=== PATIENT | male | born 1965 | race Caucasian/White ===

== ENCOUNTER 2018-11-15 06:59 | Day surgery (SDC) | payer BC ==
[2018-11-14 11:38] VITALS: BMI 29.6
[2018-11-15] MEDS ORDERED: ceFAZolin Sodium (SDC) 2 GM/100 ML BAG ONE (07:50)
[2018-11-15 07:58] LABS: #Basophils 0.1 thou/uL (0.0-0.2); #Eosinphils 0.1 thou/uL (0.0-0.7); #Lymphocytes 2.4 thou/uL (1.20-3.40); #Monocytes 0.8 thou/uL (0.11-0.59); #Neutrophils 4.8 thou/uL (1.40-6.50); %Basophils 0.6 % (0.0-1.0); %Eosinophils 1.3 % (0.0-10.0); %Lymphocytes 28.9 % (21.0-51.0); %Monocytes 10.2 % (0.0-10.0); %Neutrophils 58.9 % (42.0-75.0); Hemoglobin 15.1 g/dL (14.0-18.0); Mean Corpuscular HGB CONC 33.7 g/dL (32.0-36.0); Mean Corpuscular Hemoglobin 30.9 pg (27.0-31.0); Mean Corpuscular Volume 91.7 fL (78.0-98.0); Mean Platelet Volume 7.4 fL (7.4-10.4); Platelet Count 233 thou/uL (130-400); RBC Distribution Width 12.1 % (11.5-14.5); Red Blood Cell (RBC) Count 4.89 mill/uL (4.70-6.10); White Blood Cell (WBC) Count 8.1 thou/uL (4.8-10.8)
[2018-11-15] MEDS ORDERED: Bupivacaine HCl 0.5%/Epinephrine 1:200,000/PF 30 ml Vial ONE (08:13)
[2018-11-15] MEDS ORDERED: Fentanyl 100 MCG/2 ML VIAL ONE (08:31)
[2018-11-15] MEDS ORDERED: Morphine 2 MG/ML SYRINGE ONE (10:26)
--- NOTE | 2018-11-15 15:16 | OP ---
DATE OF PROCEDURE: 11/15/2018 PREOPERATIVE DIAGNOSIS: Right tennis elbow. POSTOPERATIVE DIAGNOSIS: Right tennis elbow. PROCEDURE PERFORMED: Right tennis elbow lateral epicondylitis debridement. ANESTHESIOLOGIST: Isaiah Andrews MD ANESTHESIA: The patient received an LMA with 90 mL of Marcaine 0.5% with epinephrine. ESTIMATED BLOOD LOSS: Less than 10 mL. TOURNIQUET TIME: 21 minutes at 300 mmHg. ANTIBIOTICS: Ancef 2 g. COMPLICATIONS: None. HISTORY OF PRESENT ILLNESS: Jeanette is a 53-year-old male with history of previous tennis elbow injections, had failed conservative measures and was stretching over a year and a half of symptoms. He decided to have a release. I discussed the risks and benefits of pain, scar, bleeding, infection, damage to vital structures, decreased range of motion and strength, nonunion, fracture above or below, and need for further surgeries. The patient understands the risks and benefits and elected to proceed. DESCRIPTION OF PROCEDURE: Time-out was performed designating the patient's right upper extremity as the operative site based on site, consents, and marking. After time-out, the patient's right upper extremity was prepped and draped in sterile fashion. An incision was made over the lateral epicondyle down through skin. When dissecting, came down to lateral epicondyle, made incision with the fascia up to lateral epicondyle. I came down on the entire condyle and debrided down the capsule, staying away from the patient's lateral collateral ligament. I took a rongeur, rongeured off the epicondyle, I moved up towards the brachioradialis. I made sure I had released the patient's ECRB and a portion of this longus, I took a section of the tendon out, staying above the capsule. After placing my debridement, I washed, closed the fascial plane with 2-0, subcu with 2-0 and 3-0 nylon. I injected 4 mL of Marcaine in the subcu fascia for closing the fascia above the tendon and injected the remainder subcu for a total of 9. The patient's tourniquet let down after 21 minutes, and placed a soft tissue dressing. The patient will follow up with me in about 10 to 12 days for suture removal. Job ID: [id number]
== END 2018-11-15 11:26 | disposition home or self-care (01) ==
LOC: SDC 06:59
PROVIDERS: ATTEND Orthopaedic Surgery
PROC: 0PBF0ZZ Excision of Right Humeral Shaft, Open Approach (ICD-10-PCS; principal; 2018-11-15)
PROC: 0L830ZZ Division of Right Upper Arm Tendon, Open Approach (ICD-10-PCS; principal; 2018-11-15)
DX: M77.11 Lateral epicondylitis, right elbow (principal); E78.5 Hyperlipidemia, unspecified; M47.812 Spondylosis without myelopathy or radiculopathy, cervical region; Z79.899 Other long term (current) drug therapy
CPT/HCPCS: 85025; J0670; J0690; J2270; J3010

== ENCOUNTER 2019-11-28 07:53 | Outpatient (CLI) | payer BC ==
--- NOTE | 2019-11-28 09:21 | MRI ---
MRI OF THE PELVIS WITHOUT CONTRAST: INDICATION: 54-year-old male with changes of bilateral proximal lower extremity weakness that is symm etric, predominantly involving the thighs. Has not improved or changed over the last year. No known trauma or injury. Patient has no history of lumbar spinal surgery. TECHNIQUE: Multiplanar multisequence MR images were obtained of the pelvis as well as proximal aspect s of both thighs. No MR or CT comparisons are available. FINDINGS: The visualized lumbosacral neural foramina appear widely patent. Visualized aspects of the femoral ne rve and sciatic nerve appear within normal limits. There is a moderate amount of retained stool within the colon. No free fluid is evident. No intrapelvic mass is identified. Visualized bladder an d prostate appears within normal limits. No bone marrow signal abnormality is grossly evident. There is some mild edema involving the proximal adductor musculature, predominantly the adductor mini mus and adductor brian musculature proximally, as well as portions of the more proximal and medial quadratus femoris on the right. No muscle signal abnormality is seen on the left. Rectus femoris and hamstring origins appear within normal limits. Both abductor minimus and medius tendons insertions appear within normal limits. No trochanteric or iliopsoas bursitis is evident. No definite large para labral cyst is evident. No joint effusion is noted. IMPRESSION: Nonspecific mild edema involving the proximal right adductor minimus and adductor brian musculature as well as portions of the medial aspect of the right quadratus femoris musculature. Findings are most suspicious for mild muscular strain. No overt muscular atrophy is evident. No lumbosacral neural foraminal narrowing is grossly evident. No intrapelvic mass is identified. No intrapelvic lymphadenopathy is seen. Transcribed Date/Time: 11/28/2019 9:59 AM
--- NOTE | 2019-11-28 09:40 | RAD ---
RADIOGRAPH CERVICAL SPINE 5 VIEWS: DATE: 11/28/2019 HISTORY: 54-year-old male with cervicalgia TECHNIQUE: Lateral, bilateral oblique, AP, open-mouth views. FINDINGS: Vertebral body heights are maintained. ACDF plate and screws at at C5, C6, and C7. Metallic markers f or interbody cages at the C5-6 and C6-7 disc spaces. Normal alignment. Ossified posterior longitudinal ligament at C4, C5, C6. Uncinate process osteophytes encroach upon bilateral neural fora jenn at C6-7 and on the right at C5-6. Facet DJD bilaterally at several levels. No disc space narrowing superior to C5 level. No prevertebral soft tissue swelling.. IMPRESSION: 1) status post anterior cervical discectomy and fusion at C5-6-7. 2) bilateral neural foraminal stenosis at C6-7, and right neural foraminal stenosis at C5-6. 3) ossified posterior longitudinal ligament at mid levels.
== END 2019-11-28 07:54 | disposition home or self-care (01) ==
LOC: SCSMRI 07:53
PROVIDERS: ATTEND Psychiatry & Neurology Neurology
DX: M47.812 Spondylosis without myelopathy or radiculopathy, cervical region (principal); G72.9 Myopathy, unspecified; M48.02 Spinal stenosis, cervical region; Z98.1 Arthrodesis status; Z98.890 Other specified postprocedural states; R60.0 Localized edema
CPT/HCPCS: 72052; 72195

== ENCOUNTER 2020-02-11 19:00 | Outpatient (CLI) | payer BC | END 2020-02-11 19:01 | disposition home or self-care (01) | LOC: SLEEPLAB 19:00 | PROVIDERS: ATTEND Family Medicine | DX: G47.33 Obstructive sleep apnea (adult) (pediatric) (principal) | CPT/HCPCS: 95811 ==

== ENCOUNTER 2020-08-07 10:04 | Outpatient (CLI) | payer BC | END 2020-08-07 10:05 | disposition home or self-care (01) | LOC: SCSRAD 10:04 | PROVIDERS: ATTEND Internal Medicine Rheumatology | DX: M17.0 Bilateral primary osteoarthritis of knee (principal); M54.5 Low back pain; M47.816 Spondylosis without myelopathy or radiculopathy, lumbar region | CPT/HCPCS: 72100 ==

== ENCOUNTER 2021-04-12 08:02 | Outpatient (CLI) | payer BC | END 2021-04-12 08:03 | disposition home or self-care (01) | LOC: SCSMRI 08:02 → BICMRI 08:03 | PROVIDERS: ATTEND Anesthesiology Pain Medicine | DX: M54.12 Radiculopathy, cervical region (principal); M48.02 Spinal stenosis, cervical region; Z98.1 Arthrodesis status | CPT/HCPCS: 72141 ==

== ENCOUNTER 2021-09-22 07:55 | Outpatient (CLI) | payer BC | END 2021-09-22 07:56 | disposition home or self-care (01) | LOC: SCSRAD 07:55 | PROVIDERS: ATTEND Family Medicine | DX: M94.0 Chondrocostal junction syndrome [Tietze] (principal) ==

== ENCOUNTER 2022-07-05 07:38 | Outpatient (CLI) | payer BC | END 2022-07-05 07:39 | disposition home or self-care (01) | LOC: SCSMRI 07:38 | PROVIDERS: ATTEND Orthopaedic Surgery | DX: M24.812 Other specific joint derangements of left shoulder, not elsewhere classified (principal); S46.912A Strain of unspecified muscle, fascia and tendon at shoulder and upper arm level, left arm, initial encounter; S43.402A Unspecified sprain of left shoulder joint, initial encounter; S46.212A Strain of muscle, fascia and tendon of other parts of biceps, left arm, initial encounter ==

== ENCOUNTER 2022-08-01 07:56 | Outpatient (CLI) | payer BC ==
[2022-08-01 08:35] LABS: #Eosinphils 0.2 10x3/uL (0.0-0.5); #Monocytes 1.1 10x3/uL (0.0-1.1); #Neutrophils 4.5 10x3/uL (1.5-8.4); %Basophils 0.5 % (0.0-2.0); %Eosinophils 2.4 % (0.0-6.0); %Lymphocytes 29.6 % (18.0-47.0); %Monocytes 12.8 % (0.0-10.0); %Neutrophils 54.5 % (40.0-75.0); Hemoglobin 16.4 g/dL (13.5-17.5); Mean Corpuscular HGB CONC 32.9 g/dL (32.0-36.0); Mean Corpuscular Hemoglobin 30.5 pg (27.0-33.0); Mean Corpuscular Volume 92.8 fl (81.2-95.1); Mean Platelet Volume 9.7 fl (7.4-10.4); Platelet Count 258 10x3/uL (150-450); RBC Distribution Width 13.5 % (11.5-14.5); Red Blood Cell (RBC) Count 5.38 10x6/uL (4.32-5.72); White Blood Cell (WBC) Count 8.3 10x3/uL (3.5-10.5)
== END 2022-08-01 07:57 | disposition home or self-care (01) ==
LOC: LABBT 07:56
PROVIDERS: ATTEND Orthopaedic Surgery
DX: Z01.812 Encounter for preprocedural laboratory examination (principal); M75.122 Complete rotator cuff tear or rupture of left shoulder, not specified as traumatic; S46.212A Strain of muscle, fascia and tendon of other parts of biceps, left arm, initial encounter
CPT/HCPCS: 85025

== ENCOUNTER 2022-08-04 05:49 | Day surgery (SDC) | payer BC ==
[2022-08-01 08:23] VITALS: BMI 30.5
[2022-08-04] MEDS ORDERED: Ondansetron PF 4 MG/2 ML Vial ONE (06:19)
[2022-08-04] MEDS ORDERED: Lidocaine 1% PF 5 ML VIAL ONE (06:19)
[2022-08-04] MEDS ORDERED: Midazolam HCl 2 mg/2 ml Vial ONE (06:19)
[2022-08-04] MEDS ORDERED: NEOSTIGMINE 3 MG/3 ML SYR 3 MG/3 ML SYRINGE ONE (06:19)
[2022-08-04] MEDS ORDERED: Rocuronium Bromide 10 MG/ML (10ML VIAL) ONE (06:19)
[2022-08-04] MEDS ORDERED: Fentanyl 250 MCG/5 ML VIAL ONE (06:19)
[2022-08-04] MEDS ORDERED: ePHEDrine Sulfate 50 MG/10 ML VIAL ONE (06:19)
[2022-08-04] MEDS ORDERED: Glycopyrrolate 0.2 MG/ML 5 ML SYRINGE ONE (06:19)
[2022-08-04] MEDS ORDERED: PROPOFOL 200 MG/20 ML VIAL ONE (06:19)
[2022-08-04] MEDS ORDERED: Dexamethasone 20 MG/5 ML VIAL ONE (06:19)
[2022-08-04] MEDS ORDERED: Lidocaine 1% (PF) 30 ML VIAL ONE ×2 (06:24→06:41)
[2022-08-04] MEDS ORDERED: EPINEPHrine 1 MG/ML AMP ONE (06:24)
[2022-08-04] MEDS ORDERED: Ropivacaine 0.5% HCl/PF (150 MG/30 ML VIAL) ONE (06:41)
[2022-08-04] MEDS ORDERED: Ropivacaine 0.2% HCl/PF 20 ML ONE (06:41)
[2022-08-04] MEDS ORDERED: Sodium Chloride 0.9% 100 ML ONE (07:03)
[2022-08-04] MEDS ORDERED: CEFAZOLIN 2 GM VIAL ONE (07:03)
[2022-08-04] MEDS ORDERED: fentaNYL 50 mcg/mL 1 mL Vial SLOW IVP PRN (08:29)
[2022-08-04] MEDS ORDERED: Ropivacaine 0.2% 550 ML 550 ML NERVE BLCK SCH (08:30)
[2022-08-04] MEDS ORDERED: HYDROcodone/Acetaminophen 10/325 mg Tablet PO PRN ×2 (08:30)
[2022-08-04] MEDS ORDERED: Zolpidem Tartrate 5 MG TAB PO PRN (08:30)
[2022-08-04] MEDS ORDERED: traMADol HCl 50 MG TAB PO PRN ×2 (08:30)
[2022-08-04] MEDS ORDERED: Ondansetron PF 4 MG/2 ML Vial IVP PRN (08:30)
[2022-08-04] MEDS ORDERED: Promethazine HCl 25 MG/ML VIAL IM PRN (08:30)
[2022-08-04] MEDS ORDERED: Ketorolac Tromethamine 30 MG/ML VIAL IVP SCH (12:00)
== END 2022-08-04 11:55 | disposition home or self-care (01) ==
LOC: SDC 05:49
PROVIDERS: ATTEND Orthopaedic Surgery
PROC: 0LM24ZZ Reattachment of Left Shoulder Tendon, Percutaneous Endoscopic Approach (ICD-10-PCS; principal; 2022-08-04)
DX: M75.122 Complete rotator cuff tear or rupture of left shoulder, not specified as traumatic (principal); S46.212A Strain of muscle, fascia and tendon of other parts of biceps, left arm, initial encounter; E78.5 Hyperlipidemia, unspecified; Z79.899 Other long term (current) drug therapy; Z98.1 Arthrodesis status
CPT/HCPCS: A4306; C1713; J0171; J1100; J2001; J2250; J2405; J2704; J2795; J3010; J3490

== ENCOUNTER 2022-08-05 16:09 | Emergency (ER) | payer BC ==
[2022-08-05] MEDS ORDERED: Ketorolac Tromethamine 30 MG/ML VIAL ONE (16:47)
[2022-08-05] MEDS ORDERED: Morphine 4 MG/ML VIAL ONE (17:18)
[2022-08-05] MEDS ORDERED: Morphine 2 MG/ML VIAL ONE (17:18)
== END 2022-08-05 19:41 | disposition home or self-care (01) ==
LOC: ERS 16:09
DX: M25.512 Pain in left shoulder (principal); T85.9XXA Unspecified complication of internal prosthetic device, implant and graft, initial encounter; E78.5 Hyperlipidemia, unspecified
CPT/HCPCS: 96372; 96374; J1885; J2270; J2272

== ENCOUNTER → 2022-08-06 | Day surgery (SDC) | payer BC ==
[~2022-08-06] MED LIST: Dexamethasone 4 mg/ml Vial ONE
== END | disposition home or self-care (01) ==
LOC: ER/OP 10:30
PROVIDERS: ATTEND Anesthesiology
PROC: 3E0T3BZ Introduction of Anesthetic Agent into Peripheral Nerves and Plexi, Percutaneous Approach (ICD-10-PCS; principal; 2022-08-06)
DX: M25.512 Pain in left shoulder (principal)
CPT/HCPCS: J1100

== ENCOUNTER 2023-01-17 08:00 | Outpatient (CLI) | payer BC | END 2023-01-17 08:01 | disposition home or self-care (01) | LOC: SCSMRI 08:00 | PROVIDERS: ATTEND Anesthesiology Pain Medicine | DX: M47.22 Other spondylosis with radiculopathy, cervical region (principal); M48.02 Spinal stenosis, cervical region; M89.38 Hypertrophy of bone, other site; M50.11 Cervical disc disorder with radiculopathy, high cervical region; M50.13 Cervical disc disorder with radiculopathy, cervicothoracic region; Z98.1 Arthrodesis status | CPT/HCPCS: 72052; 72141 ==